=== PATIENT | female | born 1975 | race Caucasian/White ===

== ENCOUNTER 2019-01-27 09:07 | Emergency (ER) | payer OTHER ==
[2019-01-27] MEDS ORDERED: LIDOCAINE 2% VISCOUS 15 ML UDCUP PO ONE (09:21)
[2019-01-27] MEDS ORDERED: HYOSCYAMINE SULFATE 0.125 MG TAB PO ONE (09:21)
[2019-01-27] MEDS ORDERED: MAG HYDROX/AL HYDROX/SIMETH 30 ML UDCUP PO ONE (09:21)
[2019-01-27] MEDS ORDERED: NS 500 ML IV ONE ×2 (09:22→10:17)
--- NOTE | 2019-01-27 09:35 | EDPHY ---
H & P Stated Complaint: upper stomach, middle back pain Time Seen by Provider: 01/27/19 09:09 HPI/ROS: CHIEF COMPLAINT: Chest and back discomfort HISTORY OF PRESENT ILLNESS: This is a 44-year-old female presents emergency department reporting that yesterday she developed mid anterior chest spasm like pain with radiation into her back. Discomfort was there all day yesterday. She had some difficulty sleeping last night secondary to the discomfort. Slightly better if she sat up. No abdominal pain or nausea. No palpitations or shortness of breath. No pleuritic component. Patient has history of reflux but reports that this feels different. Her reflux will typically cause some epigastric discomfort and burning sensation in her mid chest. This feels like "something is stuck". She did have significant alcohol intake 2 nights ago, but no vomiting. No fevers or chills. Has use Prilosec with no relief. No history of gallstone disease. No cardiac history, no history of hypertension or diabetes. No history of PEs or DVTs. Did travel to [place] 2 weeks ago for spring. Denies shortness of breath. No respiratory symptoms, cold, cough, runny nose. REVIEW OF SYSTEMS: A comprehensive 10 system review of systems was reviewed and is otherwise negative aside from elements mentioned in the history of present illness and medical decision making. PAST MEDICAL HISTORY: Reflux. Ulcerative colitis. Uses a NuvaRing for control. SOCIAL HISTORY: Nonsmoker. No illicit drug use. No marijuana. VITAL SIGNS Reviewed by me. GENERAL: Well-developed, well-nourished, very pleasant. Reports pain at 7/10 when the spasms occur. In no respiratory distress. HEENT: Atraumatic. Eyes: No icterus, no injection. Mouth: moist mucous membranes. No erythema or lesions. Neck: supple with no adenopathy. LUNGS: Clear to auscultation bilaterally, no wheezes, rhonchi or rales. CARDIAC: Regular rate and rhythm, no rubs, murmurs or gallops. CHEST: No chest wall tenderness. ABDOMEN: Soft, no epigastric or right upper quadrant tenderness. No lower quadrant tenderness. No guarding or rebound. BACK: No CVA tenderness. EXTREMITIES: No trauma. No edema. Range of motion is normal throughout. NEURO: Alert and oriented, grossly nonfocal. SKIN: Warm and dry, no rash. PSYCHIATRIC: Normal mentation, no agitation. - Medical/Surgical History Other PMH: hernia age 6, GERD Constitutional: Initial Vital Signs Temperature (C) 36.9 C 01/27/19 09:15 Heart Rate 75 01/27/19 09:15 Respiratory Rate 18 01/27/19 09:15 Blood Pressure 121/77 H 01/27/19 09:15 O2 Sat (%) 97 01/27/19 09:15 O2 Delivery Mode Room Air Allergies/Adverse Reactions: No Known Allergies Allergy (Unverified 01/27/19 09:40) Home Medications: Medication Instructions Recorded Hydrocodone/APAP 5/325 [Runge 1 tab PO Q6H PRN #10 tab 01/27/19 5/325 (RX)] Nuvaring Vaginal Ring 01/27/19 Omeprazole 01/27/19 Ondansetron Odt [Zofran Odt 4 mg 4 mg PO Q6 PRN #8 tab 01/27/19 (RX)] Medical Decision Making - Diagnostics EKG Interpretation: 12-LEAD EKG: Please see the full report in [facility]. My interpretation: Sinus rhythm, no acute ST or T-wave changes Imaging Results: Imaging Impressions Chest X-Ray 01/27/19 09:35 Impression: No acute abnormality. Chest/Thorax CTA 01/27/19 10:10 Impression: 1. There is no CT evidence of pulmonary artery thromboemboli. 2. Abnormal distal thoracic esophageal wall thickening, above a small hiatal hernia. Consider endoscopic correlation for further assessment, given the patient's history of chest pain. Findings were discussed with Joann Delaney MD at 11:06, on 01/27/2019. Imaging: Discussed imaging studies w/ call center director Radiologist, I viewed and interpreted images myself ED Course/Re-evaluation: Healthy 44-year-old female presenting to the emergency department with 24 hr of mid chest and mid back discomfort described as a spasm like something is stuck. IV was placed. Patient's EKG demonstrates normal sinus rhythm with no ischemic changes. The bedside troponin was negative. Patient had a GI cocktail. She reports that this did not improve her symptoms. Additional labs: CBC, chemistries, LFTs, and lipase all largely unremarkable. Chest x-ray is normal. Patient's D-dimer significantly elevated at 2230. (cutoff 500) Patient did have a CT scan of the chest to evaluate for pulmonary emboli. No pulmonary emboli seen. However, the patient's distal thoracic esophagus is thick walled and inflamed. Concern for potential Henderson's esophagus was raised. Discussed the findings of the CT scan with the patient. Asked to diligently follow treatment for esophagitis. Patient was instructed to take PPI regularly , add a H2 liam at night, use Maalox or Mylanta if needed for discomfort related to eating. She also was discharged with a short course of Vicodin to use if needed for more severe discomfort until the esophagitis begins to settle down. Discussed the importance of following up with Gastroenterology for EGD or other treatment as deemed appropriate. Differential Diagnosis: Differential diagnoses for the patient's symptom complex was considered including but not limited to gastritis, reflux, pancreatitis, esophagitis, cholecystitis, pulmonary emboli, ACS. - Data Points Laboratory Results: 01/27/19 01/27/19 01/27/19 09:41 09:31 09:28 POC Sodium 142 mEq/L mEq/L (135-145) POC Potassium 4.1 mEq/L mEq/L (3.3-5.0) POC Chloride 106.0 mEq/L mEq/L (97-110) POC Total CO2 22 mEq/L mEq/L (22-31) POC BUN 8 mg/dL mg/dL (7-23) POC Creatinine 0.9 mg/dL mg/dL (0.6-1.0) POC Glucose 110 mg/dL H mg/dL (70-100) POC Calcium 9.2 mg/dL mg/dL (8.5-10.4) POC Total Bilirubin 0.6 mg/dL mg/dL (0.1-1.4) POC GGT 9 IU/L IU/L (5-65) POC AST 30 IU/L IU/L (14-46) POC ALT 21 IU/L IU/L (9-52) POC Alk Phosphatase 80 IU/L IU/L (38-126) POC Troponin I 0.00 ng/mL ng/mL (0.00-0.08) POC Total Protein 7.4 g/dL g/dL (6.3-8.2) POC Albumin 3.4 g/dL L g/dL (3.5-5.0) POC Amylase 35 IU/L IU/L (30-110) Medications Given: Discontinued Medications Al Hydroxide/Mg Hydroxide (Maalox Susp) 30 ml PO ONCE ONE Stop: 01/27/19 09:22 Last Admin: 01/27/19 10:02 Dose: 30 ml Hydromorphone HCl (Dilaudid) 1 mg IVP EDNOW ONE Stop: 01/27/19 10:17 Last Admin: 01/27/19 10:50 Dose: 1 mg Hyoscyamine Sulfate (Levsin, Hyomax-Sl) 0.25 mg PO ONCE ONE Stop: 01/27/19 09:22 Last Admin: 01/27/19 09:41 Dose: 0.25 mg Sodium Chloride (Ns) 500 mls @ 1,000 mls/hr IV EDNOW ONE PRN Reason: Protocol Stop: 01/27/19 09:51 Last Admin: 01/27/19 09:43 Dose: 500 mls Sodium Chloride (Ns) 500 mls @ 1,000 mls/hr IV EDNOW ONE PRN Reason: Protocol Stop: 01/27/19 10:46 Last Admin: 01/27/19 10:50 Dose: 500 mls Lidocaine (Lidocaine 2% Viscous) 15 ml PO ONCE ONE Stop: 01/27/19 09:22 Last Admin: 01/27/19 10:02 Dose: 15 ml Pantoprazole Sodium (Protonix) 40 mg IVP EDNOW ONE Stop: 01/27/19 11:10 Last Admin: 01/27/19 11:16 Dose: 40 mg Point of Care Test Results: CBC CBC Collection Date 01/27/19 CBC Collection Time 09:15 WBC 10.46 RBC 4.56 HGB 13.7 HCT 40.8 PLT 311 Neut # 7.13 Neut 68.1 LYMPH # 2.61 LYMPH 25 MCV 89.5 Chemistry 01/27/19 01/27/19 01/27/19 09:41 09:31 09:28 POC Sodium 142 mEq/L mEq/L (135-145) POC Potassium 4.1 mEq/L mEq/L (3.3-5.0) POC Chloride 106.0 mEq/L mEq/L (97-110) POC Total CO2 22 mEq/L mEq/L (22-31) POC BUN 8 mg/dL mg/dL (7-23) POC Creatinine 0.9 mg/dL mg/dL (0.6-1.0) POC Glucose 110 mg/dL H mg/dL (70-100) POC Calcium 9.2 mg/dL mg/dL (8.5-10.4) POC Total Bilirubin 0.6 mg/dL mg/dL (0.1-1.4) POC GGT 9 IU/L IU/L (5-65) POC AST 30 IU/L IU/L (14-46) POC ALT 21 IU/L IU/L (9-52) POC Alk Phosphatase 80 IU/L IU/L (38-126) POC Troponin I 0.00 ng/mL ng/mL (0.00-0.08) POC Total Protein 7.4 g/dL g/dL (6.3-8.2) POC Albumin 3.4 g/dL L g/dL (3.5-5.0) POC Amylase 35 IU/L IU/L (30-110) D-Dimer D-Dimer Collection Date 01/27/19 D-Dimer Collection Time 09:15 D-Dimer (ng/ml) 2230 Liver Function Tests LFT Collection Date 01/27/19 LFT Collection Time 09:10 Urine Collection Date 01/27/19 Collection Time 10:17 HCG Results Negative Departure - Departure Disposition: Home, Routine, Self-Care Clinical Impression: Esophagitis Chest pain Qualifiers: Chest pain type: unspecified Qualified Code(s): R07.9 - Chest pain, unspecified Condition: Good Instructions: Diet for Stomach Ulcers and Gastritis (ED), Esophagitis (ED) Additional Instructions: For your esophagitis this is what I recommend: 1. Proton pump inhibitor. Please take this daily 30-60 minutes before food. This is available [id number] as omeprazole or pantoprazole. 2. Medications to decrease the overall amount of acid. I recommend an over-the- counter H2 liam such as Tagamet or ranitidine. Please take this at night. 3. You may use Maalox or Mylanta to help occult the esophagus provided additional pain relief if the above treatments are not working. 4. Follow up with Gastroenterology as soon as possible for upper GI study. 5. You may take Tylenol as needed for pain. If needed, you been given a prescription for hydrocodone to use for more severe pain. I also provided a prescription for some Zofran to use if needed for any nausea or vomiting. Referrals: NONE *PRIMARY CARE P,. [Primary Care Provider] - As per Instructions Fredy Mares MD [Medical Doctor] - As per Instructions Prescriptions: Hydrocodone/APAP 5/325 [Runge 5/325 (RX)] 1 tab PO Q6H PRN #10 tab PRN Reason: Pain Ondansetron Odt [Zofran Odt 4 mg (RX)] 4 mg PO Q6 PRN #8 tab PRN Reason: Nausea
[2019-01-27] MEDS ORDERED: HYDROmorphONE/DILAUDID 2 MG/ML INJ IVP ONE (10:16)
[2019-01-27] MEDS ORDERED: IOPAMIDOL (ISOVUE 370) 100 ML BTL IV ONE (10:16)
[2019-01-27] MEDS ORDERED: PANTOPRAZOLE SODIUM 40 MG VIAL IVP ONE (11:09)
[2019-01-27 11:38] VITALS: BP 99/57
--- NOTE | 2019-01-27 15:53 | CPEKG ---
Test Reason : OPEN Blood Pressure : / mmHG Vent. Rate : 069 BPM Atrial Rate : 069 BPM P-R Int : 170 ms QRS Dur : 104 ms QT Int : 415 ms P-R-T Axes : 042 -29 020 degrees QTc Int : 445 ms Sinus rhythm Abnormal R-wave progression, early transition Inferior infarct, old Confirmed by Joann Delaney ([id number]) on 01/27/2019 3:52:02 PM Referred By: Joann Delaney Confirmed By:Joann Delaney
== END 2019-01-27 11:37 | disposition home or self-care (01) ==
LOC: CED 09:07
DX: K20.9 Esophagitis, unspecified (principal); R07.9 Chest pain, unspecified; E86.9 Volume depletion, unspecified
CPT/HCPCS: 71046-PO; 71275-PO; 80048-ER; 80076-ER; 81025-ER; 82150-ER; 84484-ER; 85025-QW-ER; 85379-QW-ER; 96361-ER; 96374-ER; 96375-ER; 99285-ER; J1170; Q9967